=== PATIENT | female | born 1990 | race Caucasian/White ===

== ENCOUNTER 2018-01-16 12:59 | Emergency (ER) | payer OTHER ==
[2018-01-16] MEDS: IBUPROFEN 600 MG TAB PO (14:36)
== END 2018-01-16 15:50 | disposition home or self-care (01) ==
LOC: FTE 12:59
DX: M54.6 Pain in thoracic spine (principal); M25.532 Pain in left wrist; J45.909 Unspecified asthma, uncomplicated
CPT/HCPCS: 29125; 99283-25